=== PATIENT | female | born 1970 | race Caucasian/White ===

== ENCOUNTER → 2016-11-09 | Outpatient (CLI) | payer OTHER ==
[~2016-11-09] VITALS: Ht 175.3 cm; Wt 72.6 kg
[~2016-11-09] MED LIST: AMBI5TAB PO; CRAN500C2 PO; CYCL10TA PO; LIDOCAINE 2% INJ 100 MG/5 ML SDV (FOR ANES.) As Ordered ONE; LOSA50TA20 PO; NEXI20CA PO; NS 1,000 ML IV SCH; PROPOFOL 200 MG/20 ML VIAL As Ordered ONE; VITA100037 PO
--- NOTE | 2016-11-09 17:13 | ROOR ---
Patient Name: Estee Christian Procedure Date: 11/09/2016 4:40 PM Date of : 1970 Age: 46 Room: [facility] Gender: Female Note Status: Finalized Procedure: Colonoscopy Indications: Hematochezia Providers: Jesse MENDEZ MD Referring MD: RUTH MIRANDA MD Requesting Provider: Medicines: Monitored Anesthesia Care Complications: No immediate complications. Procedure: Pre-Anesthesia Assessment: - The heart rate, respiratory rate, oxygen saturations, blood pressure, adequacy of pulmonary ventilation, and response to care were monitored throughout the procedure. The Colonoscope was introduced through the anus and advanced to 8 cm into the ileum. The colonoscopy was performed without difficulty. The patient tolerated the procedure well. The quality of the bowel preparation was good. Findings: The perianal and digital rectal examinations were normal. The terminal ileum appeared normal. Inflammation characterized by erosions, erythema and granularity was found in a continuous and circumferential pattern from the anus to the sigmoid colon. The area from anus to rectum was spared. This was moderate in severity. Biopsies were taken with a cold forceps for histology. A localized area of mildly erythematous mucosa was found appendiceal orifice. This was biopsied with a cold forceps for histology. The exam was otherwise without abnormality on direct and retroflexion views. Biopsies were taken with a cold forceps in the rectum, in the sigmoid colon, in the descending colon, in the transverse colon and in the ascending colon for histology. Impression: - Proctosigmoid ulcerative colitis. Inflammation was found from the anus to the distal sigmoid colon (0-25 cm from verge). This was moderate in severity. Biopsied. - Erythematous mucosa ("cecal patch") at the appendiceal orifice. Biopsied. - The colon examination was otherwise normal on direct and retroflexion views. - The examined portion of the ileum was normal. -The perianal exam was normal. - Biopsies were taken with a cold forceps for histology in the rectum, in the sigmoid colon, in the descending colon, in the transverse colon and in the ascending colon. Recommendation: - Use Lialda 1.2 gm at 4 tabs PO daily. - (the script was sent to your pharmacy on file) - Telephone endoscopist for pathology results in 2 weeks. - Return to my office in 1 month. Jesse Mendez MD Jesse MENDEZ MD 11/09/2016 5:13:08 PM This report has been signed electronically. Number of Addenda: 0 Note Initiated On: 11/09/2016 4:40 PM Estimated Blood Loss: Estimated blood loss: none.
[2016-11-09 17:39] VITALS: BP 160/88
== END ==
LOC: M OPP 12:30
PROVIDERS: ATTEND Internal Medicine Gastroenterology
DX: K63.89 Other specified diseases of intestine (principal); K51.30 Ulcerative (chronic) rectosigmoiditis without complications; I10 Essential (primary) hypertension; Z79.899 Other long term (current) drug therapy

== ENCOUNTER 2019-05-26 01:14 | Inpatient (IN) | payer OTHER ==
[~2019-05-26] VITALS: Ht 170.2 cm; Wt 68.1 kg
[~2019-05-26 01:14] MED LIST changes: +CETIRIZINE (ZyrTEC) 10 MG TAB PO SCH; -LIDOCAINE 2% INJ 100 MG/5 ML SDV (FOR ANES.) As Ordered ONE; -LOSA50TA20 PO; +LOSA50TA88 PO; +LOSARTAN 50 MG TAB PO SCH; -NS 1,000 ML IV SCH; -PROPOFOL 200 MG/20 ML VIAL As Ordered ONE; -VITA100037 PO; +VITA100067 PO
[2019-05-26 02:20] VITALS: BP 166/82
[2019-05-26 02:22] VITALS: BP 166/82
[2019-05-26] MEDS ORDERED: MIRALAX *UNIT DOSE* 17GM PACKET PO PRN (03:00)
[2019-05-26] MEDS ORDERED: COLA100C5 PO (03:04)
[2019-05-26] MEDS ORDERED: METR-265 PO (03:04)
[2019-05-26] MEDS ORDERED: LOSA100T50 PO (03:04)
[2019-05-26] MEDS ORDERED: CIPR500T3 PO (03:04)
[2019-05-26] MEDS ORDERED: LIAL1.2T PO (03:04)
[2019-05-26] MEDS ORDERED: ALL10TAB29 PO (03:11)
--- NOTE | 2019-05-26 03:16 | HPEPDOC ---
General Date of Admission 05/26/19 Date of Service: May 26, 2019 Attending Physician: TINA CAPPS DO Chief Complaint The patient is a 48-year-old female admitted with a reason for visit of Colitis. Source: Patient Exam Limitations: No limitations Timing/Duration: Day(s) Severity: Mild, Moderate History of Present Illness Patient is 48 years old female with past medical history of ulcerative colitis transferred from [facility] with abdominal pain, tenesmus. Patient stated that after pelvic sling surgery and uterectomy which was done on 05/02/2019 she developed tenesmus. Abdominal CAT scan showed colonic inflammation consistent with diverticulitis. Treatment with antibiotics Flagyl and Cipro started 7 days ago. Of note, patient has ulcerative colitis in remission. After few days of antibiotic therapy abdominal pain resolved, however patient did have constipation with some tenesmus. After recent surgery patient took opioid meds by mouth. Today patient was in the [facility] with abdominal bloating. CT abdomen with contrast was done and showed some mild thickening of colon. After arrival to our hospital patient developed bowel movement with brownish formed stool. After that patient stated that abdominal bloating gone and she feels much better. She will have appointment with her automatic developer on 05/30/19 Home Medications Scheduled Cetirizine HCl (Cetirizine HCl) 10 Mg Tablet, 10 MG PO QHS, (Reported) Ciprofloxacin HCl (Ciprofloxacin HCl) 500 Mg Tablet, 500 MG PO BID, (Reported) 10 DAY SUPPLY: STARTING 05/19/19 Docusate Sodium (Colace) 100 Mg Capsule, 100 MG PO DAILY, (Reported) Losartan Potassium (Losartan Potassium) 100 Mg Tablet, 100 MG PO QHS, (Reported) Mesalamine (Lialda) 1.2 Gm Tablet.dr, 4.8 GM PO QHS, (Reported) Metronidazole (Metronidazole) 500 Mg Tablet, 500 MG PO Q8H, (Reported) 10 DAY SUPPLY: STARTING 05/19/19 Scheduled PRN Ibuprofen (Ibuprofen) 800 Mg Tablet, 800 MG PO Q8H PRN for PAIN, (Reported) Oxycodone HCl/Acetaminophen (Oxycodone-Acetaminophen 5-325) 1 Each Tablet, 1 TAB PO Q8H PRN for PAIN, (Reported) Polyethylene Glycol 3350 (Polyethylene Glycol 3350) 17 Gm Powd.pack, 1 PKT PO DA MARCE PRN for CONSTIPATION Allergies Coded Allergies: No Known Allergies (Verified , 11/03/16) Past Medical History Medical History Ulcerative colitis, hypertension, diverticulitis, UTI, Surgical History Uterectomy, pelvic sling surgery 05/02/19 Family History Father from the cancer, mother from heart attack Social History * Smoker: Denies Alcohol: Denies Drugs: denies A-FIB/CHADSVASC A-FIB History Current/History of A-Fib/PAF?: No Current PO Anticoag Therapy: No Review of Systems Constitutional: Denies: Chills, Fever Eyes: Denies: Pain, Vision change ENT: Denies: Head Aches, Ear Pain Skin: Denies: Rash, Lesions Pulmonary: Denies: Dyspnea, Cough Cardiovascular: Denies: Chest Pain, Palpitations Gastrointestinal: Reports: Abdominal Pain, Constipation; Denies: Nausea, Vomiting Genitourinary: Denies: Dysuria, Frequency Hematologic: Denies: Bruising, Bleeding Excessively Endocrine: Denies: Polydipsia, Polyphagia Musculoskeletal: Denies: Neck Pain, Back Pain Neurological: Denies: Weakness, Numbness Psych: Denies: Mood Normal, Anxiety Physical Examination General Exam: Positive: Alert, Cooperative Eye Exam: Positive: PERRLA, Conjunctiva & lids normal ENT Exam: Positive: Atraumatic Neck Exam: Positive: Supple; Negative: JVD Chest Exam: Positive: Clear to auscultation Heart Exam: Positive: Regular Rhythm Abdomen Exam: Positive: BS Hyperactive Extremity Exam: Negative: Clubbing, Cyanosis Skin Exam: Negative: Nl turgor and temperature, Rash Neuro Exam: Positive: Normal Gait, Cranial Nerves 3-12 NL Psych Exam: Positive: Mental status NL, Oriented x 3 Vital Signs HR 96 Assessment/Plan Patient is 48 years old female with past medical history of ulcerative colitis transferred from [facility] with abdominal pain, tenesmus. Problems (1) Constipation Problem Text: Resolved upon arrival to our hospital, patient developed bowel movement most likely after oral contrast MiraLAX when necessary (2) Diverticulitis Problem Text: Continue treatment with Flagyl and Cipro to complete 10 days course (3) Ulcerative colitis Problem Text: Currently in remission, patient did not have any diarrhea, bloody stool, leukocytosis Patient will have appointment with GI on the next week Plan / VTE VTE Prophylaxis Ordered?: Yes TINA CAPPS DO May 26, 2019 03:16
[2019-05-26] MEDS ORDERED: OXYC1TAB23 PO (03:20)
[2019-05-26] MEDS ORDERED: IBUP1TAB7 PO (03:21)
[2019-05-26 03:54] VITALS: BP 166/82
[2019-05-26 06:00] VITALS: BP 157/72
[2019-05-26] MEDS ORDERED: metroNIDAZOLE (FLAGYL) 500 MG TAB PO SCH (06:00)
[2019-05-26] MEDS ORDERED: CIPROFLOXACIN 500 MG TAB PO SCH (06:00)
[2019-05-26] MEDS ORDERED: HEPARIN SOD (PORCINE) 5000 UNITS/ML VIAL SC SCH (09:00)
[2019-05-26] MEDS ORDERED: DOCUSATE SODIUM 100 MG CAP PO SCH ×2 (09:00)
[2019-05-26] MEDS ORDERED: MESALAMINE 250 MG CR CAP PO SCH (09:00)
[2019-05-26] MEDS ORDERED: PEG1POW PO (10:54)
--- NOTE | 2019-05-26 12:49 | DS.PDOC ---
Discharge Summary General Date of Admission May 26, 2019 at 02:10 Date of Discharge 05/26/2019 Attending Physician: CHRISTI FARRAR MD Discharge Summary PROCEDURES PERFORMED DURING STAY: None ADMITTING DIAGNOSES: 1. Colitis DISCHARGE DIAGNOSES: 1. Opioid induced constipation 2. Diverticulitis 2. Ulcerative colitis COMPLICATIONS/CHIEF COMPLAINT: Colitis. HISTORY OF PRESENT ILLNESS: 48 years old woman with ulcerative colitis stable on mesalamine who was transferred from [facility] with abdominal painand bloating over a few days on 05/26/2019 overnight. HOSPITAL COURSE: She stated that after pelvic sling surgery and uterectomy which was done on 05/02/2019 she developed tenesmus. A follow up CT scan showed colonic inflammation consistent with diverticulitis and she was on Cipro/Flagyl that started a week prior for a 10 day course. Of note, her ulcerative colitis has been in remission. After starting the antibiotic therapy abdominal pain resolved, however patient did have constipation with some tenesmus. After recent surgery patient took opioid meds by mouth. The patient presented to [facility] with abdominal bloating. A CT abdomen with contrast was done and showed some mild thickening of the colon and decision was made to transfer to [facility]. After arrival to [facility] the patient had a bowel movement with brownish formed stool after which she stated that her abdomi nal bloating resolved and she feels much better. She will now be discharged home and will have an appointment with her tar pot man on 05/30/19. DISCHARGE MEDICATIONS: Please see below. ALLERGIES: Please see below. PHYSICAL EXAMINATION ON DISCHARGE: VITAL SIGNS: Please see below. General Exam: Alert, well developed, well nourished, cooperative Eye Exam: PERRLA, Conjunctiva & lids normal ENT Exam: Atraumatic Neck Exam: Supple; no JVD Chest Exam: Clear to auscultation Heart Exam: Regular rate and rhythm, s1s2 without murmurs or gallops Abdomen Exam: Normoactive bowel sounds, soft, non tender Extremity Exam: warm and well perfused, no edema Skin Exam: Normal turgor, no rash Neuro Exam: Normal Gait, Cranial Nerves 3-12 within normal limits Psych Exam: Alert and Oriented x 3, normal affect, excited to be discharged home LABORATORY DATA: Please see below. IMAGING: None at [facility] PROGNOSIS: Good ACTIVITY: As tolerated DIET: As tolerated, regular DISCHARGE PLAN: home and will have an appointment with her tar pot man on 05/30/19 DISPOSITION: Home DISCHARGE INSTRUCTIONS: 1. Whenever you are prescribed opioid medication by a provider, please remember to take a stool softener as opioid analgesics are constipating. ITEMS TO FOLLOWUP ON ON OUTPATIENT: 1. Diverticulitis resolution 2. Ulcerative colitis follow up DISCHARGE CONDITION: Good TIME SPENT ON DISCHARGE: Greater than 30 minutes. Vital Signs/I&Os Vital Signs Date Time Temp Pulse Resp B/P (MAP) Pulse Ox O2 Delivery O2 Flow Rate FiO2 05/26/19 06:00 98.1 86 18 157/72 (100) 100 I&O- Last 24 Hours up to 6 AM 05/26/19 06:00 Output Total 400 ml Balance -400 ml Discharge Medications Scheduled Cetirizine HCl (Cetirizine HCl) 10 Mg Tablet, 10 MG PO QHS, (Reported) Ciprofloxacin HCl (Ciprofloxacin HCl) 500 Mg Tablet, 500 MG PO BID, (Reported) 10 DAY SUPPLY: STARTING 05/19/19 Docusate Sodium (Colace) 100 Mg Capsule, 100 MG PO DAILY, (Reported) Losartan Potassium (Losartan Potassium) 100 Mg Tablet, 100 MG PO QHS, (Reported) Mesalamine (Lialda) 1.2 Gm Tablet.dr, 4.8 GM PO QHS, (Reported) Metronidazole (Metronidazole) 500 Mg Tablet, 500 MG PO Q8H, (Reported) 10 DAY SUPPLY: STARTING 05/19/19 Scheduled PRN Ibuprofen (Ibuprofen) 800 Mg Tablet, 800 MG PO Q8H PRN for PAIN, (Reported) Oxycodone HCl/Acetaminophen (Oxycodone-Acetaminophen 5-325) 1 Each Tablet, 1 TAB PO Q8H PRN for PAIN, (Reported) Polyethylene Glycol 3350 (Polyethylene Glycol 3350) 17 Gm Powd.pack, 1 PKT PO DAILY PRN for CONSTIPATION Allergies Coded Allergies: No Known Allergies (Verified , 11/03/16) CHRISTI FARRAR MD May 26, 2019 12:49
== END 2019-05-26 12:10 | disposition home or self-care (01) | DRG 392 ==
LOC: M MS4PR 02:10
PROVIDERS: ADMIT Internal Medicine; ATTEND Internal Medicine
DX: K57.30 Diverticulosis of large intestine without perforation or abscess without bleeding (principal); K51.90 Ulcerative colitis, unspecified, without complications; K59.00 Constipation, unspecified; F11.90 Opioid use, unspecified, uncomplicated; Z79.899 Other long term (current) drug therapy

== ENCOUNTER → 2019-05-30 | Outpatient (CLI) | payer OTHER ==
[~2019-05-30] MED LIST changes: +ALL10TAB29 PO; -CETIRIZINE (ZyrTEC) 10 MG TAB PO SCH; +CIPR500T3 PO; +COLA100C5 PO; +IBUP1TAB7 PO; +LIAL1.2T PO; +LOSA100T50 PO; -LOSARTAN 50 MG TAB PO SCH; +METR-265 PO; +OXYC1TAB23 PO; +PEG1POW PO
[2019-05-30 10:46] LABS: BASO # 0.1 10^3/uL (0.0-0.2); BASO % 1.1 % (0.0-1.0); EOS # 0.3 10^3/uL (0.0-0.5); EOS % 3.9 % (0.0-3.0); HEMATOCRIT 30.7 % (36.0-47.0); HEMOGLOBIN 9.8 g/dl (12.0-15.5); LYMPH # 1.4 10^3/uL (1.5-5.0); LYMPH % 21.9 % (24.0-44.0); MEAN CORPUSCULAR HEMOGLOBIN 29.6 pg (27.0-33.0); MEAN CORPUSCULAR HGB CONC 31.9 g/dl (32.0-36.5); MEAN CORPUSCULAR VOLUME 92.7 fl (80.0-96.0); MONO # 0.5 10^3/uL (0.0-0.8); MONO % 7.7 % (0.0-5.0); NEUTROPHILS # 4.2 10^3/uL (1.5-8.5); NEUTROPHILS % 64.8 % (36.0-66.0); PLATELET COUNT, AUTOMATED 307 10^3/uL (150-450); RED BLOOD COUNT 3.31 10^6/uL (4.00-5.40); WHITE BLOOD COUNT 6.5 10^3/uL (4.0-10.0)
[2019-05-30 11:17] LABS: ALBUMIN 3.8 GM/DL (3.2-5.2); ALT/SGPT 20 U/L (12-78); BILIRUBIN,TOTAL 0.2 MG/DL (0.2-1.0); BLOOD UREA NITROGEN 4 MG/DL (7-18); CARBON DIOXIDE LEVEL 24 MEQ/L (21-32); CHLORIDE LEVEL 108 MEQ/L (98-107); CREATININE FOR GFR 0.63 MG/DL (0.55-1.30); GLOMERULAR FILTRATION RATE > 60.0 (>51); GLUCOSE, FASTING 93 MG/DL (70-100); POTASSIUM SERUM 3.6 MEQ/L (3.5-5.1); SODIUM LEVEL 141 MEQ/L (136-145); TOTAL PROTEIN 7.3 GM/DL (6.4-8.2)
== END ==
LOC: M LAB 10:08
PROVIDERS: ATTEND Physician Assistant Medical
DX: R19.7 Diarrhea, unspecified (principal); R10.31 Right lower quadrant pain

== ENCOUNTER → 2019-06-22 | Outpatient (CLI) | payer OTHER ==
--- NOTE | 2019-06-22 09:51 | REP ---
RIGHT UPPER QUADRANT ULTRASOUND: Real-time sonographic evaluation of the right upper quadrant was performed. In the gallbladder There is a 3 mm polyp along the inner wall. No gallstones are seen. There is no gallbladder wall thickening or pericholecystic fluid. There is no intrahepatic or extrahepatic biliary dilatation. Common bile duct measuring 6 mm. Liver demonstrates a few calcified granulomas in the right lobe. Hyperechoic nodule in the left lobe has measurements of 1.8 x 1.8 x 2.0 cm. This may represent a hemangioma. The pancreas demonstrates an oval hypoechoic area in the head of the pancreas measuring 2.9 x 1.4 x 3.6 cm. I can not exclude underlying pancreatic mass. Right kidney demonstrates no hydronephrosis with normal size of 12.4 cm in length. IMPRESSION: There is a 3 mm gallbladder polyp without gallstones, gallbladder wall thickening, biliary diltation or free fluid. A few calcified granulomas are seen in the liver. There is a 2 cm hyperechoic nodule in the left lobe of the liver which may represent a hemangioma. Oval hypoechoic area in the pancreatic head 2.9 x 1.4 x 3.6 cm. Cannot rule out pancreatic head mass. Recommend dedicated CT or MRI of the liver and pancreas with and without contrast for further evaluation. Electronically Signed by Ifeanyi Hollins MD 06/23/2019 09:13 A
== END ==
LOC: M RAD 07:24
PROVIDERS: ATTEND Physician Assistant Medical
DX: R93.3 Abnormal findings on diagnostic imaging of other parts of digestive tract (principal); K82.4 Cholesterolosis of gallbladder; K75.3 Granulomatous hepatitis, not elsewhere classified; K76.89 Other specified diseases of liver

== ENCOUNTER → 2019-07-11 | Outpatient (CLI) | payer OTHER ==
[~2019-07-11] MED LIST changes: +PROHANCE 279.3MG/ML 15ML VIAL (A9576) As Ordered ONE
--- NOTE | 2019-07-12 10:34 | REP ---
MRI LIVER AND PANCREAS: HISTORY: Probable hemangioma left lobe liver and possible pancreatic head mass on ultrasound 06/22/2019. TECHNIQUE: Multiple sequences obtain in the axial and coronal planes prior to and following the intravenous administration of 13.6 mL ProHance. Liver demonstrates a nodule in the left lobe measuring 1.8 cm in diameter which is hyperintense on T2-weighted images and hypointense on T1. There is peripheral nodular enhancement with gradual filling in of the nodule on delayed postcontrast images consistent with a hemangioma. No other liver nodule is seen. The gallbladder is grossly unremarkable. No mass is seen in the pancreas. There is no abnormal signal in the region of the pancreatic head. Common bile duct is normal in caliber with no stricture. No pancreatic duct dilatation is seen. Spleen is normal in size with no intrinsic abnormality. Visualized kidneys are unremarkable. I see no adenopathy or free fluid in the visualized abdomen. IMPRESSION: Findings consistent with hemangioma in the left lobe of the liver as seen by ultrasound. Diameter is approximately 1.8 cm. No evidence of pancreatic mass. Electronically Signed by Ifeanyi Hollins MD 07/12/2019 11:24 A
== END ==
LOC: M RAD 16:15
PROVIDERS: ATTEND Physician Assistant Medical
DX: R93.3 Abnormal findings on diagnostic imaging of other parts of digestive tract (principal)
CPT/HCPCS: 74183; A9576

== ENCOUNTER 2019-11-06 06:28 | Day surgery (SDC) | payer OTHER ==
[~2019-11-06] VITALS: Ht 170.2 cm; Wt 68.9 kg
[~2019-11-06 06:28] MED LIST changes: +GABA-845 PO; +NS 1,000 ML IV ONE; -PROHANCE 279.3MG/ML 15ML VIAL (A9576) As Ordered ONE
[2019-11-06] MEDS ORDERED: LIDOCAINE 2% INJ 100 MG/5 ML SDV (FOR ANES.) As Ordered ONE (07:15)
[2019-11-06] MEDS ORDERED: propofoL 200 MG/20 ML VIAL As Ordered ONE (07:15)
--- NOTE | 2019-11-06 08:26 | ROOR ---
Patient Name: Estee Christian Procedure Date: 11/06/2019 7:52 AM Date of : 1970 Age: 49 Room: [id number] Gender: Female Note Status: Finalized Procedure: Colonoscopy Indications: Lower abdominal pain, Follow-up of chronic ulcerative proctosigmoiditis, Disease activity assessment of chronic ulcerative proctosigmoiditis Providers: Jesse MENDEZ MD Referring MD: Roger Boles Do, RUTH MIRANDA MD Requesting Provider: Medicines: Monitored Anesthesia Care Complications: No immediate complications. Procedure: Pre-Anesthesia Assessment: - The heart rate, respiratory rate, oxygen saturations, blood pressure, adequacy of pulmonary ventilation, and response to care were monitored throughout the procedure. The Colonoscope was introduced through the anus and advanced to the terminal ileum, with identification of the appendiceal orifice and IC valve. The colonoscopy was performed without difficulty. The patient tolerated the procedure well. The quality of the bowel preparation was good. Findings: The perianal and digital rectal examinations were normal. Mild sigmoid diverticulosis and small internal hemorrhoids. The terminal ileum appeared normal. There is no endoscopic evidence of inflammation in the entire colon. Several biopsies were obtained in the rectum, in the sigmoid colon, in the descending colon, in the transverse colon and in the ascending colon with cold forceps for histology. Impression: - Mild sigmoid diverticulosis and small internal hemorrhoids. - The colon is otherwise normal. - The examined portion of the ileum was normal. - Visually the ulcerative proctosigmoiditis is absent. For microscopic assessment, several biopsies were obtained in the rectum, in the sigmoid colon, in the descending colon, in the transverse colon and in the ascending colon.. Recommendation: - Continue present medications. - Await pathology results. - Telephone endoscopist for pathology results in 2 weeks. Jesse Mendez MD Jesse MENDEZ MD 11/06/2019 8:25:53 AM Electronically signed by Jesse MENDEZ MD Number of Addenda: 0 Note Initiated On: 11/06/2019 7:52 AM Estimated Blood Loss: Estimated blood loss: none.
[2019-11-06 08:39] VITALS: BP 135/69
== END 2019-11-06 08:42 | disposition home or self-care (01) ==
LOC: M OPP 06:28
PROVIDERS: ATTEND Internal Medicine Gastroenterology
DX: K57.30 Diverticulosis of large intestine without perforation or abscess without bleeding (principal); K64.8 Other hemorrhoids; R10.30 Lower abdominal pain, unspecified; Z79.899 Other long term (current) drug therapy

== ENCOUNTER → 2022-10-18 | Outpatient (CLI) | payer OTHER ==
[~2022-10-18] MED LIST changes: -ALL10TAB29 PO; +CETI-24 PO; +CYCL-707 PO; -CYCL10TA PO; +GABA-283 PO; -GABA-845 PO; +LOSA100T45 PO; -LOSA100T50 PO; +LOSA50TA28 PO; -LOSA50TA88 PO; -NS 1,000 ML IV ONE; -PEG1POW PO; +POLY17PO18 PO
[2022-10-18 12:56] LABS: ALBUMIN 4.3 G/DL (3.2-5.2); BLOOD UREA NITROGEN 7 MG/DL (9-23); CALCIUM LEVEL 9.5 MG/DL (8.5-10.1); CARBON DIOXIDE LEVEL 26 MMOL/L (20-31); CHLORIDE LEVEL 102 MMOL/L (98-107); CREATININE FOR GFR 0.74 MG/DL (0.55-1.30); GLOMERULAR FILTRATION RATE > 60.0 (>51); SODIUM LEVEL 137 MMOL/L (136-145)
[2022-10-19 06:35] LABS: GLUCOSE, FASTING 96 MG/DL (60-100)
== END ==
LOC: M LAB 11:56
PROVIDERS: ATTEND Physician Assistant
DX: U07.1 COVID-19 (principal)

== ENCOUNTER → 2025-04-13 | Day surgery (SDC) | payer OTHER ==
[~2025-04-13] VITALS: Ht 170.2 cm; Wt 81.0 kg
[~2025-04-13] MED LIST changes: -AMBI5TAB PO; -GABA-283 PO; +GABA-284 PO; +GLYCOPYRROLATE INJ 0.2 MG/ML 2 ML VIAL As Ordered ONE; +KETOROLAC 30 MG/ML 1 ML VIAL As Ordered ONE; +LIDOCAINE 2% 100 MG/5 ML SDV (FOR ANES.) As Ordered ONE; -LOSA100T45 PO; +LOSA100T46 PO; +MESA1.2T PO; +ROSU20TA86 PO; +ZOLP-532 PO
[2025-04-13 10:35] VITALS: TEMP 97.4
[2025-04-13 10:50] VITALS: BP 123/80; O2SAT 97
== END | disposition home or self-care (01) ==
LOC: M OPP 09:34
PROVIDERS: ATTEND Internal Medicine Gastroenterology
DX: K51.50 Left sided colitis without complications (principal); K57.30 Diverticulosis of large intestine without perforation or abscess without bleeding; K51.30 Ulcerative (chronic) rectosigmoiditis without complications; Z79.899 Other long term (current) drug therapy
CPT/HCPCS: 45380; 88305; J1596; J1885; J3010